=== PATIENT | male | born 1975 | race Caucasian/White ===

== ENCOUNTER 2017-10-23 21:27 | Emergency (ER) | payer OTHER ==
[2017-10-23] MEDS ORDERED: NA CHLORIDE 0.9% 1,000 ML ONE ×2 (22:27→23:44)
[2017-10-23] MEDS ORDERED: ONDANSETRON 4 MG/2 ML VIAL ONE ×2 (22:27→23:44)
[2017-10-23 22:28] LABS: Absolute Lymphocytes (CBC) 1.9 K/uL (0.7-4.9); Absolute Monocytes 0.8 K/uL (0.1-1.3); Absolute Neutrophil 9.1 K/uL (1.8-8.0); Basophils % 0.4 % (0-1.3); Lymphocytes % 15.6 % (15.3-44.8); MCH 28.6 pg (27.0-35.0); MCV 82.9 fL (80-100); MPV 8.3 fL (7.6-11.3); Monocytes % 6.9 % (3.3-12.3); RBC Red Blood Cell Count 6.51 M/uL (4.33-5.43)
[2017-10-23] MEDS ORDERED: DICYCLOMINE HCL 10 MG CAP ONE (22:36)
[2017-10-23 22:42] LABS: Potassium 3.7 mEq/L (3.6-5.0)
[2017-10-23 22:48] LABS: Albumin 4.6 g/dL (3.2-5.5); Bilirubin Direct 0.1 mg/dL (0-0.2); Bilirubin Total 0.7 mg/dL (0.3-1.2); Protein, Total 7.8 g/dL (6.0-8.3)
[2017-10-23 23:11] LABS: Urine Blood TRACE (NEG); Urine Glucose NEGATIVE (NEG); Urine Protein NEGATIVE (NEG); Urine pH 5.5 (5.0-7.0)
[2017-10-23 23:13] LABS: Urine Bacteria <20 /HPF (NONE SEEN); Urine Culture Reflex Order NOT NEEDED; Urine Mucus 4+ /HPF (NONE SEEN); Urine RBC <5 /HPF (NONE SEEN)
[2017-10-23 23:18] LABS: Blood Morphology Comment NOT SEEN (NOT SEEN); Platelet Estimate ADEQ
[2017-10-23] MEDS ORDERED: MORPHINE 4 MG/ML SYR ONE (23:44)
--- NOTE | 2017-10-24 01:05 | ER ---
Nurse's Notes [facility] Name: Prem Rooney Age: 42 yrs Sex: Male : 1975 Arrival Date: 10/23/2017 Time: 21:28 Bed 28 Private MD: Jose Schmidt Diagnosis: Vomiting;Diarrhea, unspecified;Generalized abdominal pain Presentation: 10/23 21:53 Presenting complaint: Patient states: abdominal pain since noon yesterday. Reports aj1 nausea,vomiting, diarrhea. Denies fever. Transition of care: patient was not received from another setting of care. Onset of symptoms was October 22, 2017 at 12:00. Risk Assessment: Do you want to hurt yourself or someone else? Patient reports no desire to harm self or others. Initial Sepsis Screen: Does the patient meet any 2 criteria? No. Patient's initial sepsis screen is negative. Does the patient have a suspected source of infection? No. Patient's initial sepsis screen is negative. Care prior to arrival: None. 21:53 Method Of Arrival: Ambulatory aj1 21:53 Acuity: HENRIQUE 3 aj1 Triage Assessment: 21:56 General: Appears in no apparent distress. uncomfortable, Behavior is calm, cooperative, aj1 appropriate for age. Pain: Complains of pain in epigastric area, right upper quadrant and left upper quadrant Pain does not radiate. Pain currently is 8 out of 10 on a pain scale. Quality of pain is described as dull, Pain began 1 day ago. Is continuous, Alleviated by nothing. Aggravated by nothing. GI: Abdomen is non-distended, Reports diarrhea, nausea, vomiting. Historical: - Allergies: 21:56 No Known Allergies; aj1 - Home Meds: 21:56 Lisinopril Oral [Active]; Nexium Oral [Active]; aj1 - PMHx: 21:56 Hyperlipidemia; GERD; aj1 - PSHx: 21:56 None; aj1 - Immunization history:: Adult Immunizations up to date. - Social history:: Smoking status: Patient/guardian denies using tobacco. - Ebola Screening: : Patient denies travel to an Ebola-affected area in the 21 days before illness onset. Screenin:40 Abuse screen: Denies threats or abuse. Nutritional screening: No deficits noted. rk2 Tuberculosis screening: No symptoms or risk factors identified. Fall Risk None identified. Assessment: 22:42 General: Appears in no apparent distress. well groomed, well developed, well nourished, rk2 Behavior is calm, cooperative. Pain: Complains of pain in abdomen and left upper quadrant and right upper quadrant and epigastric area. Neuro: Level of Consciousness is alert, obeys commands, Oriented to person, place, time, situation. Respiratory: Airway is patent Respiratory effort is even, unlabored, Respiratory pattern is regular, symmetrical. GI: Bowel sounds Abd is soft Abdomen is tender to palpation in abdomen and left upper quadrant and right upper quadrant and epigastric area. GI: Reports cramping, diarrhea, nausea, vomiting. Derm: Skin is pink, warm \T\ dry. 23:30 Reassessment: Patient appears in no apparent distress at this time. No changes from 2 previously documented assessment. Patient and/or family updated on plan of care and expected duration. Pain level reassessed. Patient states symptoms have not improved. 10/24 00:05 Reassessment: Pt. returned from CT. rk2 Vital Signs: 10/23 21:56 BP 155 / 109; Pulse 80; Resp 18; Temp 97.8; Pulse Ox 98% on R/A; Weight 104.33 kg; aj1 Height 5 ft. 10 in. (177.80 cm); Pain 8/10; 23:45 BP 136 / 91; Pulse 72; Resp 17; Pulse Ox 100% on R/A; rk2 10/24 01:00 BP 140 / 98; Pulse 67; Resp 18; Pulse Ox 98% on R/A; rk2 10/23 21:56 Body Mass Index 33.00 (104.33 kg, 177.80 cm) [facility] ED Course: 10/23 21:28 Patient arrived in ED. am2 21:28 Jose Schmidt MD is Private Physician. am2 21:55 Triage completed. aj1 21:56 Arm band placed on Patient placed in an exam room. aj1 21:58 Micha Aguilar PA is PHCP. [facility] 21:58 Mark Lora MD is Attending Physician. [facility] 22:00 Génesis Worrell RN is Primary Nurse. rk2 22:40 Patient has correct armband on for positive identification. Bed in low position. Call rk2 light in reach. 22:40 Inserted saline lock: 18 gauge in right antecubital area, using aseptic technique. rk2 23:50 CT Abd/Pelvis - W/Contrast Sent. rk2 10/24 00:00 CT Abd/Pelvis - W/Contrast In Process Unspecified. EDMS 00:02 CT completed. Patient tolerated procedure well. Patient moved to CT via stretcher. Patient moved back from [place]. 01:04 Jose Schmidt MD is Referral Physician. [facility] 01:21 No provider procedures requiring assistance completed. IV discontinued. rk2 Administered Medications: 10/23 22:32 Drug: Zofran 4 mg Route: IVP; Site: right antecubital; rk2 23:19 Follow up: Response: No adverse reaction rk2 22:32 Drug: NS 0.9% 1000 ml Route: IV; Rate: 1 bolus; Site: right antecubital; rk2 23:19 Follow up: Response: No adverse reaction; IV Status: Completed infusion rk2 22:35 Drug: Bentyl 20 mg Route: PO; rk2 23:19 Follow up: Response: No adverse reaction rk2 23:47 Drug: Zofran 4 mg Route: IVP; Site: right antecubital; rk2 10/24 01:07 Follow up: Response: No adverse reaction rk2 10/23 23:48 Drug: NS 0.9% 1000 ml Route: IV; Rate: 1 bolus; Site: right antecubital; rk2 10/24 00:30 Follow up: Response: No adverse reaction; IV Status: Completed infusion rk2 10/23 23:48 Drug: morphine 4 mg Route: IVP; Site: right antecubital; rk2 10/24 01:07 Follow up: Response: No adverse reaction rk2 Outcome: 01:04 Discharge ordered by . damian 01:21 Discharged to home ambulatory. rk2 01:21 Condition: improved 01:21 Discharge instructions given to patient, Prescriptions given X 3. 01:22 Patient left the ED. rk2 Signatures: Dispatcher [employer] EDMS Margi Field, RN RN aj1 Micha Aguilar PA PA jmm Hagler, Ervin eh Moreno, Amanda am2 Génesis Worrell RN RN rk2
--- NOTE | 2017-10-24 01:05 | EDPHYS ---
Physician Documentation [facility] Name: Prem Rooney Age: 42 yrs Sex: Male : 1975 Arrival Date: 10/23/2017 Time: 21:28 Bed 28 Private MD: Jose Schmidt ED Physician Mark Lora HPI: 10/23 22:18 This 42 yrs old Male presents to ER via Ambulatory with complaints of jmm Abdominal Pain, Nausea/Vomiting/Diarrhea. 22:18 The patient presents with abdominal pain that is diffuse. Onset: The symptoms/episode jmm began/occurred gradually, 1 day(s) ago. The symptoms do not radiate. Associated signs and symptoms: Pertinent positives: nausea and vomiting, diarrhea, Pertinent negatives: fever. This is a 42 year old male with a hx of gerd, hlp, that presents to the ED with vomiting, diarrhea, generalized abdominal pain beginning last night. Denies recent abx use, denies recent travel, denies infectious exposure. . Historical: - Allergies: 21:56 No Known Allergies; aj1 - Home Meds: 21:56 Lisinopril Oral [Active]; Nexium Oral [Active]; aj1 - PMHx: 21:56 Hyperlipidemia; GERD; aj1 - PSHx: 21:56 None; aj1 - Immunization history:: Adult Immunizations up to date. - Social history:: Smoking status: Patient/guardian denies using tobacco. - Ebola Screening: : Patient denies travel to an Ebola-affected area in the 21 days before illness onset. ROS: 22:18 Constitutional: Negative for fever, chills, and weight loss, Cardiovascular: Negative jmm for chest pain, palpitations, and edema, Respiratory: Negative for shortness of breath, cough, wheezing, and pleuritic chest pain. 22:18 Back: Negative for injury and pain, MS/Extremity: Negative for injury and deformity, Skin: Negative for injury, rash, and discoloration, Neuro: Negative for headache, weakness, numbness, tingling, and seizure. 22:18 Abdomen/GI: Positive for abdominal pain, nausea and vomiting, diarrhea. 22:18 All other systems are negative. Exam: 22:18 Head/Face: atraumatic. Chest/axilla: Normal chest wall appearance and motion. jmm Nontender with no deformity. No lesions are appreciated. Cardiovascular: Regular rate and rhythm. No gallops, murmurs, or rubs. Full/Equal distal pulses. Respiratory: Lungs have equal breath sounds bilaterally, clear to auscultation. No rales, rhonchi or wheezes noted. No increased work of breathing, no retractions or nasal flaring. 22:18 Constitutional: The patient appears in no acute distress, alert, awake. 22:18 Abdomen/GI: Inspection: obese Bowel sounds: normal, Palpation: abdomen is soft and non-tender, in all quadrants. 22:18 Skin: Appearance: Color: normal in color. 22:18 Neuro: Orientation: is normal, Mentation: is normal, Memory: is normal, Gait: is steady. 22:18 Psych: Behavior/mood is pleasant, cooperative. Vital Signs: 21:56 BP 155 / 109; Pulse 80; Resp 18; Temp 97.8; Pulse Ox 98% on R/A; Weight 104.33 kg; aj1 Height 5 ft. 10 in. (177.80 cm); Pain 8/10; 23:45 BP 136 / 91; Pulse 72; Resp 17; Pulse Ox 100% on R/A; rk2 10/24 01:00 BP 140 / 98; Pulse 67; Resp 18; Pulse Ox 98% on R/A; rk2 10/23 21:56 Body Mass Index 33.00 (104.33 kg, 177.80 cm) aj MDM: 10/23 22:20 Patient medically screened. [facility] 22:20 Differential diagnosis: appendicitis, cholecystitis, Cholelithiasis, diverticulitis, [facility] gastritis, non-specific abd pain, pancreatitis, gastroenteritis. Data reviewed: vital signs, nurses notes. 10/24 01:00 Data reviewed: radiologic studies, CT scan. [facility] 01:00 Counseling: I had a detailed discussion with the patient and/or guardian regarding: the [facility] historical points, exam findings, and any diagnostic results supporting the discharge/admit diagnosis, the presence of at least one elevated blood pressure reading (>120/80) during this emergency department visit, lab results, radiology results, the need for outpatient follow up, to return to the emergency department if symptoms worsen or persist or if there are any questions or concerns that arise at home. Response to treatment: the patient's symptoms have markedly improved after treatment. 10/23 21:59 Order name: Amylase, Serum; Complete Time: 23:32 [facility] 10/23 21:59 Order name: Basic Metabolic Panel; Complete Time: 23:32 [facility] 10/23 21:59 Order name: CBC with Diff; Complete Time: 23:32 [facility] 10/23 21:59 Order name: Creatinine for Radiology; Complete Time: 22:45 [facility] 10/23 21:59 Order name: Hepatic Function; Complete Time: 23:32 [facility] 10/23 21:59 Order name: Lipase; Complete Time: 23:32 [facility] 10/23 21:59 Order name: Urine Microscopic Only; Complete Time: 23:32 [facility] 10/23 22:40 Order name: Manual Differential; Complete Time: 23:32 [facility] 10/23 22:41 Order name: Urine Dipstick--Ancillary (enter results); Complete Time: 23:32 [facility] 10/23 23:38 Order name: CT Abd/Pelvis - W/Contrast [facility] 10/23 21:59 Order name: IV Saline Lock; Complete Time: 22:40 [facility] 10/23 21:59 Order name: Labs collected and sent; Complete Time: 22:40 [facility] 10/23 21:59 Order name: Urine Dipstick-Ancillary (obtain specimen); Complete Time: 22:40 [facility] Administered Medications: 10/23 22:32 Drug: Zofran 4 mg Route: IVP; Site: right antecubital; rk2 23:19 Follow up: Response: No adverse reaction rk2 22:32 Drug: NS 0.9% 1000 ml Route: IV; Rate: 1 bolus; Site: right antecubital; rk2 23:19 Follow up: Response: No adverse reaction; IV Status: Completed infusion rk2 22:35 Drug: Bentyl 20 mg Route: PO; rk2 23:19 Follow up: Response: No adverse reaction rk2 23:47 Drug: Zofran 4 mg Route: IVP; Site: right antecubital; rk2 10/24 01:07 Follow up: Response: No adverse reaction 2 10/23 23:48 Drug: NS 0.9% 1000 ml Route: IV; Rate: 1 bolus; Site: right antecubital; rk2 10/24 00:30 Follow up: Response: No adverse reaction; IV Status: Completed infusion rk2 10/23 23:48 Drug: morphine 4 mg Route: IVP; Site: right antecubital; rk2 10/24 01:07 Follow up: Response: No adverse reaction rk2 Disposition: 05:23 Co-signature as Attending Physician, Mark Lora MD. rn Disposition: 10/24/17 01:04 Discharged to Home. Impression: Vomiting, Diarrhea, unspecified, Generalized abdominal pain. - Condition is Stable. - Discharge Instructions: Abdominal Pain, Adult, Diarrhea, Nausea and Vomiting. - Prescriptions for Bentyl 20 mg Oral Tablet - take 1 tablet by ORAL route every 6 hours As needed; 20 tablet. Ultram 50 mg Oral Tablet - take 1 tablet by ORAL route every 6 hours As needed; 12 tablet. Zofran 4 mg Oral Tablet - take 1 tablet by ORAL route every 12 hours As needed; 20 tablet. - Medication Reconciliation Form, Thank You Letter, Antibiotic Education, Prescription Opioid Use form. - Follow up: Jose Schmidt MD; When: 2 - 3 days; Reason: Continuance of care. Signatures: Dispatcher [employer] EDMargi Doyle RN RN aj1 Micha Aguilar PA PA Mark Daniels MD MD rn Kidder, Rhonda, RN RN rk2 Corrections: (The following items were deleted from the chart) 01:22 01:04 10/24/2017 01:04 Discharged to Home. Impression: Vomiting; Diarrhea, unspecified; rk2 Generalized abdominal pain. Condition is Stable. Forms are Medication Reconciliation Form, Thank You Letter, Antibiotic Education, Prescription Opioid Use. Follow up: Jose Schmidt; When: 2 - 3 days; Reason: Continuance of care. [facility]
--- NOTE | 2017-10-24 10:22 | RAD REPORT ---
EXAM DESCRIPTION: CT - Abdomen Pelvis W Contrast - 10/24/2017 3:20 am CLINICAL HISTORY: Abdominal pain with nausea. Vomiting and diarrhea since yesterday COMPARISON: none. TECHNIQUE: Computed axial tomography of the abdomen pelvis was obtained. 100 cc Isovue-300 was admin istered intravenously. Oral contrast was not requested which limits evaluation of bowel. A preliminary report was generated by [facility] and reviewed prior to this dictation All CT scans are performed using dose optimization technique as appropriate and may include automated exposure control or mA/KV adjustment according to patient size. FINDINGS: The liver has a diminished attenuation consistent with fatty infiltration Spleen, pancreas, adrenal and kidneys appear unremarkable. There is no evidence of diverticulitis. The appendix is normal. Small inguinal hernias contain fat. Small umbilical hernia is present Fluid is present within nondilated small bowel IMPRESSION: Fluid is present within nondilated small bowel which is nonspecific but could indicate a n enteritis
== END 2017-10-24 01:22 | disposition home or self-care (01) ==
LOC: ER 21:27
DX: R11.10 Vomiting, unspecified (principal); R19.7 Diarrhea, unspecified; K21.9 Gastro-esophageal reflux disease without esophagitis; E78.5 Hyperlipidemia, unspecified
CPT/HCPCS: 36415; 74177; 80048; 80076; 81003; 81015; 82150; 83690; 85025; 96361; 96374; 96375; 99284; J2405; J7030; Q9967